=== PATIENT | male | born 1945 | race Caucasian/White ===

== ENCOUNTER 2016-11-03 03:12 | Inpatient (IN) ==
--- NOTE | 2016-10-28 10:08 | EKG Report ---
Test Performed on : 10/28/2016 09:59:59 AM Test Reason : PAT Blood Pressure : / mmHG Vent. Rate : 053 BPM Atrial Rate : 053 BPM P-R Int : 176 ms QRS Dur : 094 ms QT Int : 410 ms P-R-T Axes : 013 012 037 degrees QTc Int : 384 ms Sinus bradycardia. Otherwise normal ECG When compared with ECG of 27-DEC-2011 14:21, Vent. rate has decreased BY 32 BPM QT has shortened Confirmed by Husam Storey MD ([id number]) on 10/28/2016 12:11:00 PM
[2016-10-28 10:48] LABS: MANUAL DIFF NEEDED? NO; URINE MICRO REVIEW NEEDED? NO; URINE SOURCE CLEAN CATCH
[2016-10-28 10:53] LABS: BASO% 0.7 % (0.0-0.8); EOS# 0.25 X1000 (0.0-0.7); EOS% 3.6 % (0.0-10.0); HEMATOCRIT 45.3 % (42.0-52.0); HEMOGLOBIN 15.5 g/dL (14.0-18.0); LYMPH# 1.92 X1000 (1.2-3.4); LYMPH% 27.3 % (20.5-51.1); MCH 30.7 PG (27-31); MCHC 34.2 g/dL (33-37); MCV 89.7 FL (81-99); MONO# 1.14 X1000 (0.11-0.59); MONO% 16.2 % (1.7-9.3); MPV 9.8 FL (7.4-10.4); NEUT% 52.2 % (42.2-75.2); PLT 210 X1000 (130-400); RBC 5.05 XMIL (4.7-6.1)
[2016-10-28 10:56] LABS: BILIRUBIN URINE NEGATIVE (NEGATIVE); BLOOD URINE NEGATIVE (NEGATIVE); COLOR YELLOW; GLUCOSE URINE NEGATIVE (NEGATIVE); LEUKOCYTES URINE NEGATIVE (NEGATIVE); NITRITE URINE NEGATIVE (NEGATIVE); PROTEIN URINE NEGATIVE (NEGATIVE); TURBIDITY URINE CLEAR (CLEAR); UROBILINOGEN URINE NORMAL (NORMAL)
[2016-10-28 10:58] LABS: UR EPITHELIAL CELLS <10 /HPF (<10); URINE BACTERIA NEGATIVE /HPF; URINE RBC <10 /HPF (<10); URINE WBC <10 /HPF (<10)
[2016-10-28 11:01] LABS: PROTIME 10.5 Seconds (9.2-11.7)
[2016-10-28 11:40] LABS: AGAP 12; BUN 13 mg/dL (8-22); CALCIUM 9.1 mg/dL (8.8-10.2); CHLORIDE 103 mmol/L (98-107); COSMO 279; POTASSIUM 4.3 mmol/L (3.5-5.1); SODIUM 140 mmol/L (136-145); TCO2 25 mmol/L (25-35)
[2016-11-03] MEDS ORDERED: XANAX PO PRN (06:31)
[2016-11-03] MEDS ORDERED: PEPCID ONE (08:31)
[2016-11-03] MEDS ORDERED: LYRICA ONE (08:31)
[2016-11-03] MEDS ORDERED: COLACE ONE (08:31)
[2016-11-03] MEDS ORDERED: REGLAN ONE (08:31)
[2016-11-03] MEDS ORDERED: CELEBREX ONE (08:32)
[2016-11-03] MEDS ORDERED: LR 1,000 ML ONE ×2 (08:32→15:34)
[2016-11-03] MEDS ORDERED: KEFZOL 2 GM/D5W 2 GM/50 ML IVPB ONE (08:32)
[2016-11-03] MEDS ORDERED: NAROPIN 0.5% ONE (09:03)
[2016-11-03] MEDS ORDERED: MARCAINE 0.25% PF/EPI 1:200,000 ONE (09:43)
[2016-11-03] MEDS ORDERED: TORADOL ONE (09:43)
[2016-11-03] MEDS ORDERED: CYKLOKAPRON 1,000 MG/NS 1,000 MG/100 ML IVPB ONE (09:43)
[2016-11-03] MEDS ORDERED: SODIUM CHLORIDE 0.9% ONE (09:43)
[2016-11-03] MEDS ORDERED: EXPAREL 1.3% ONE (09:44)
[2016-11-03] MEDS ORDERED: NEOSPORIN G.U. IRRIGANT ONE (09:44)
[2016-11-03] MEDS ORDERED: CLAVE SECONDARY SET 11953 ONE (09:45)
[2016-11-03] MEDS ORDERED: VERSED ONE (09:48)
[2016-11-03 11:10] LABS: URINE MICRO REVIEW NEEDED? NO; URINE SOURCE CATH
[2016-11-03 11:18] LABS: BILIRUBIN URINE NEGATIVE (NEGATIVE); BLOOD URINE NEGATIVE (NEGATIVE); COLOR YELLOW; GLUCOSE URINE NEGATIVE (NEGATIVE); LEUKOCYTES URINE NEGATIVE (NEGATIVE); NITRITE URINE NEGATIVE (NEGATIVE); PH URINE 7.5; PROTEIN URINE NEGATIVE (NEGATIVE); SP GRAVITY URINE 1.009; TURBIDITY URINE CLEAR (CLEAR); UROBILINOGEN URINE NORMAL (NORMAL)
[2016-11-03 11:20] LABS: UR EPITHELIAL CELLS <10 /HPF (<10); URINE BACTERIA NEGATIVE /HPF; URINE RBC <10 /HPF (<10); URINE WBC <10 /HPF (<10)
--- NOTE | 2016-11-03 12:16 | HISTORY AND PHYSICAL ---
CHIEF COMPLAINT: Right shoulder pain. HISTORY OF PRESENT ILLNESS: Mr. Terry is a 71-year-old white male who has experienced progressive right shoulder pain for some time. His pain is worse with range of motion and resistance exercises. Radiographic evaluation of the right shoulder reveals findings consistent with advanced degenerative joint disease. Despite conservative therapy, he still has a significant reduction in his ability to conduct his normal daily activities and will be admitted at this time for a right reverse total shoulder arthroplasty. PRIMARY CARE PROVIDER: Dr. Ray Petersen. ALLERGIES: [place]. PAST MEDICAL HISTORY: 1. Osteoarthritis. 2. Insomnia. 3. Gastroesophageal reflux disease. 4. COPD. 5. Hypertension. PAST SURGICAL HISTORY: 1. Right total hip arthroplasty. 2. Left rotator cuff repair. 3. Left knee arthroscopy. 4. Low-back surgery. 5. Bilateral carpal tunnel release. 6. Tonsillectomy. SOCIAL HISTORY: The patient is a remote smoker. HOME MEDICATIONS: 1. Multivitamin once daily. 2. Montelukast 10 mg at bedtime. 3. Meloxicam 15 mg daily. 4. Famotidine 40 mg at bedtime. 5. Diltiazem extended release 300 mg at bedtime. 6. Symbicort inhaler 2 puffs inhaled in the evening. 7. Aspirin 81 mg daily. 8. Alprazolam 0.5 tablets by mouth in the evening as necessary. 9. Tylenol 500 mg every 4 hours as necessary. REVIEW OF SYSTEMS: HEENT: No known history of stroke or cerebrovascular disease. Cardiac: He is treated for hypertension with no history of coronary artery disease or valvular heart disease. Pulmonary: The patient is a remote smoker with a history of COPD. Gastrointestinal: The patient is treated for gastroesophageal reflux disease. Denies recent nausea, vomiting, diarrhea, or constipation. No history of recent weight gain or loss. Genitourinary: Denies kidney or bladder infection or dysfunction. Neurological: He is treated for insomnia. Musculoskeletal: He is here today for management of his right shoulder degeneration and he has a longstanding history of osteoarthritis. PHYSICAL EXAMINATION: GENERAL: The patient is resting comfortably in bed. He is articulate and able to answer all questions fully. HEENT: Head is normocephalic, atraumatic. Pupils are equal, round, react to light. Nares are patent. Throat without exudate. NECK: Supple. HEART: Regular rate and rhythm. No murmurs, gallops, or rubs. LUNGS: Clear to auscultation bilaterally. ABDOMEN: Round. Bowel sounds are present. It is nontender. GENITOURINARY: Not examined. NEUROLOGICAL: Gross motor function is intact with good perception of soft touch as well. MUSCULOSKELETAL: Right shoulder no gross deformity, edema, or ecchymosis. He has a good peripheral pulse. IMPRESSION: Degenerative joint disease of the right shoulder. PLAN: Right reverse total shoulder arthroplasty. The risks and benefits of surgery were explained to the patient including the risk of anesthesia, , bleeding, infection, damage to tendons, ligaments, nerves, and blood vessels, the possibility of blood clots and other imponderables were discussed and Mr. Terry wishes to proceed with operative management at this time. Dictated by ROSAS Maxwell for Hair Camacho MD cc: ROSAS Maxwell MD
[2016-11-03] MEDS ORDERED: NS 1,000 ML ONE (13:01)
[2016-11-03] MEDS: MOBIC PO SCH (13:09)
[2016-11-03] MEDS: CENTRUM SILVER PO SCH (13:09)
[2016-11-03] MEDS: NS 1,000 ML IV SCH (13:25)
--- NOTE | 2016-11-03 13:36 | Diag Imaging Result Document ---
PROCEDURE NAME: SHOULDER-RIGHT - 11/03/2016 SEMIUPRIGHT PORTABLE RIGHT SHOULDER SINGLE VIEW: FINDINGS: There has been recent orthopedic replacement of the right shoulder. There is good positioning on this single view. No separation at the acromioclavicular joint. No fracture.
--- NOTE | 2016-11-03 14:17 | OPERATIVE NOTE ---
PROCEDURE DATE: 11/03/2016 PREOPERATIVE DIAGNOSIS: Right glenohumeral arthritis with chronic rotator cuff tear. POSTOPERATIVE DIAGNOSIS: Right glenohumeral arthritis with chronic rotator cuff tear. PROCEDURE: Right reverse total shoulder arthroplasty with DePuy Delta Xtend size 12 press-fit stem with the modular eccentric epiphysis GREENE coated, a 42 + 6 humeral cup, a 42 eccentric Glenosphere and a standard metaglene. SURGEON: Hair Camacho MD. C UNIX DEVELOPER: YANA Moya. SECOND C UNIX DEVELOPER: YANA Arroyo. ANESTHESIA: General. IV FLUIDS: 2000 mL lactated Ringer's. ESTIMATED BLOOD LOSS: 250 mL. COMPLICATIONS: None. INDICATION: The patient is a pleasant, 71-year-old male with a chronic history of pain and discomfort of the right shoulder. The patient did have an MRI which did reveal a chronic rotator cuff tear. His x-rays did reveal underlying osteoarthritis and he also had evidence of a chronic rotator cuff tear, recommendation to proceed with right reverse shoulder arthroplasty was offered. Risks and benefits of surgery were explained, including the risks of anesthesia , , bleeding, infection, failure to relieve pain, postop stiffness, nerve injury, blood clots , and other imponderables. All questions answered. Patient and family wished to proceed with surgery. DETAILS OF OPERATION: The patient was taken to the operating room, placed supine on the operating table. Once adequate anesthesia was obtained, patient was placed in the semi- Gomes beach-chair position. The left shoulder was subsequently prepped and draped in usual sterile fashion. A standard deltopectoral incision was made with a skin knife. Medial and lateral skin envelopes were developed. Hemostasis was obtained using electrocautery. The deltopectoral interval was then developed. Retractor was then placed. The clavipectoral fascia was then elevated as well and the deep Robins retractors then placed. Attention turned to the subscapularis and stay sutures placed. The subscapularis was then elevated off its insertion site approximately 1 cm medial to its insertion. The shoulder was then dislocated anteriorly. A starting reamer was then passed in the intramedullary canal up to a size 12. The intramedullary guide was then place in position. Proximal humeral cutting block was pinned in position. The humeral head was then resected. A protective disk was then placed and attention turned to the glenoid. Circumferential dissection was then performed with a deep knife. A guide pin was then placed in position and reaming was then conducted. The central hole was then dilated. The wound was copiously irrigated with antibiotic pulsatile lavage. Standard metaglene was then impacted. Two locking screws were placed and 2 nonlocking screws. Had good purchase. The wound was copiously once again. A 42 eccentric Glenosphere was then placed with eccentricity placed inferiorly. Attention turned the proximal humerus where the intramedullary guide was placed in position. The proximal humerus was reamed. Copious irrigation then performed with antibiotic pulsatile lavage. The size 12 press- fit stem was then impacted in position. Autologous impaction bone grafting was conducted as well. Had good purchase. Trial cup size was then placed. The 42 + 6 head cup had excellent stability and range of motion. The trial cup was then moved. Wound was copiously irrigated once again, followed by the 42 + 6 humeral cup. The shoulder was then reduced, carried through range of motion with excellent stability and range of motion. Exparel was placed in deep soft tissue, as well as subcutaneous tissue. The wound was copiously irrigated once again. This was followed by repair of the subscapularis tendon with #2 FiberWire. There appeared to be good stable repair. The wound was copiously once again. This was followed by 2-0 Vicryl to repair the subcutaneous tissue, followed by a running 2-0 Prolene. Benzoin and Steri-Strips were applied. Adaptic, sterile 4 x 4, ABD pad, and tape was pplied to right shoulder, followed by shoulder immobilizer. All counts correct. Patient tolerated the procedure well and was transferred to the recovery room in stable condition. cc: Hair Camacho MD MTDD
[2016-11-03] MEDS ORDERED: MORPHINE IV PRN (14:22)
[2016-11-03] MEDS ORDERED: MILK OF MAGNESIA PO PRN (14:30)
[2016-11-03] MEDS ORDERED: ZOFRAN PO PRN (14:30)
[2016-11-03] MEDS ORDERED: DIPRIVAN 1% ONE (15:23)
[2016-11-03] MEDS ORDERED: ZOFRAN ONE (15:33)
[2016-11-03] MEDS ORDERED: NEOSTIGMINE ONE (15:33)
[2016-11-03] MEDS: TYLENOL PO SCH ×2 (15:33→21:16)
[2016-11-03] MEDS ORDERED: ROBINUL ONE (15:33)
[2016-11-03] MEDS ORDERED: ZEMURON ONE (15:34)
[2016-11-03] MEDS ORDERED: QUELICIN (DOSE) ONE (15:34)
[2016-11-03] MEDS ORDERED: XYLOCAINE-MPF 2% ONE (15:34)
[2016-11-03] MEDS ORDERED: DECADRON ONE (15:34)
[2016-11-03] MEDS ORDERED: CYKLOKAPRON 1,000 MG in NS 100 ML IV ONE (16:30)
[2016-11-03] MEDS: KEFZOL 2 GM/D5W 2 GM/50 ML IVPB IV SCH (18:01)
[2016-11-03] MEDS ORDERED: PEPCID PO SCH (21:00)
[2016-11-03] MEDS ORDERED: SINGULAIR PO SCH (21:00)
[2016-11-03] MEDS ORDERED: SYMBICORT 160/4.5 MICROGM INHALER INH SCH (21:00)
[2016-11-03] MEDS ORDERED: CARDIZEM CD PO SCH (21:00)
[2016-11-03] MEDS: COLACE PO SCH (21:15)
[2016-11-03] MEDS: PERIDEX MT SCH (21:15)
[2016-11-04] MEDS: OXY IR PO PRN ×3 (02:11→10:58)
[2016-11-04] MEDS: NS 1,000 ML IV SCH (02:11)
[2016-11-04] MEDS: TYLENOL PO SCH ×2 (02:11→08:01)
[2016-11-04] MEDS: KEFZOL 2 GM/D5W 2 GM/50 ML IVPB IV SCH (02:12)
[2016-11-04 06:15] LABS: HEMATOCRIT 40.8 % (42.0-52.0); HEMOGLOBIN 13.8 g/dL (14.0-18.0)
[2016-11-04 06:40] LABS: AGAP 11; BUN 10 mg/dL (8-22); CALCIUM 8.3 mg/dL (8.8-10.2); CHLORIDE 108 mmol/L (98-107); COSMO 284; POTASSIUM 4.2 mmol/L (3.5-5.1); SODIUM 142 mmol/L (136-145); TCO2 23 mmol/L (25-35)
--- NOTE | 2016-11-04 07:11 | PROGRESS NOTE ---
DATE: 11/04/2016 SUBJECTIVE: The patient is a pleasant, 71-year-old male, who is 1 day status post right total shoulder arthroplasty. He is currently resting comfortably and he has no complaints. PHYSICAL EXAMINATION: His dressing is intact. He is neurovascularly throughout. He has good guardian family member strength. LABORATORY DATA: His hemoglobin is 13.8, hematocrit is 40.8. IMPRESSION: Postop day #1 status post right total shoulder arthroplasty. PLAN: At this point, we will change his dressing and Hep-Lock his IV and discontinue his Mix. Plan on discharging him home. The patient will proceed with outpatient physical therapy tomorrow. cc: Hair Camacho MD
[2016-11-04] MEDS: COLACE PO SCH (08:01)
[2016-11-04] MEDS: PERIDEX MT SCH (08:01)
[2016-11-04] MEDS: CENTRUM SILVER PO SCH (08:01)
[2016-11-04] MEDS ORDERED: DECADRON IV ONE (09:00)
[2016-11-04] MEDS: MOBIC PO SCH (10:59)
[2016-11-04 15:55] VITALS: BP 142/75
== END 2016-11-04 11:17 | disposition home or self-care (01) ==
LOC: SURHOLD 03:12 → 4N 10:37
PROVIDERS: ADMIT Orthopaedic Surgery Adult Reconstructive Orthopaedic Surgery; ATTEND Orthopaedic Surgery Adult Reconstructive Orthopaedic Surgery